=== PATIENT | male | born 1995 | race Caucasian/White ===

== ENCOUNTER 2017-12-05 17:17 | Emergency (ER) | payer OTHER, SELFPAY ==
[2017-12-05 17:17] VITALS: BP 139/66; PULSE 63; RESP 14; TEMP 36.6; O2SAT 98; BMI 27.2
--- NOTE | 2017-12-05 17:48 | ED.DCSUM_ITS ---
- ER Visit Summary Date of Service: 12/05/17 Chief Complaint: Nose injury History of Present Illness: The patient is a 22 M presenting with nose injury. Patient was playing basketball and he was head butted in the nose. He states he felt lightheaded but did not lose consciousness. No nausea or vomiting. He had bleeding from the left nares. This has since improved. No other injuries. Physical Examination: Vitals are stable. Patient is afebrile. Alert no acute distress. HEENT exam tenderness and swelling to the nasal bridge, no septal hematoma, no active bleeding. Dried blood left nares. Neck is nontender Lungs are clear and equal bilaterally. Heart is regular rate and rhythm. Extremities are unremarkable. Skin is warm and dry. No focal neurologic deficit. Remainder of exam is unremarkable. Emergency Department Course and Treatment: Nasal bone x-ray shows question nondepressed distal nasal bone fracture. Patient is advised of these findings. He lives in [place]. He is advised to follow-up with ENT when he returns home. Advised to take NSAIDs for pain. Advised to ice. Advised return to ED if worsening complaints. Disposition: Discharged home Impression: Nose injury This note was generated with [employer] dictation software. It may contain incorrect words, spelling, and punctuation that were not noted in review of the chart prior to signing ED Disposition - Plan for ED Patient: Chief Complaint: Other, Pain/Inj Referrals: Dewey Astorga MD [[facility]] -
--- NOTE | 2017-12-05 17:50 | RAD_ITS ---
STUDY: X-RAY - NASAL BONES REASON FOR EXAM: Male, 22 years old. Nasal trauma, pain TECHNIQUE: 3 view(s) of the nasal bones. COMPARISON: None. FINDINGS: There may be a nondepressed fracture at the distal aspect of the nasal bone. Normal anterior nasal spine. There is mild soft tissue swelling over the nose. The remaining visualized osseous structures are normal. Normal visualized paranasal sinuses. RAD/Nasal Bones min 3 Views IMPRESSION: Question nondepressed distal nasal bone fracture. Electronically Signed: Miller Tellez DO at 18:36 EDT Tel , Service support ,
--- NOTE | 2017-12-05 18:55 | ED.DEP ---
ED Disposition - Plan for ED Patient: Chief Complaint: Other, Pain/Inj Instructions: ED Fx Nasal Conf W X Ray Referrals: Dewey Astorga MD [[facility]] -
[2017-12-05 19:18] VITALS: BP 128/60; PULSE 64; RESP 16; O2SAT 98
== END 2017-12-05 19:20 | disposition home or self-care (01) ==
PROVIDERS: Emergency Provider Emergency Medicine
DX: S09.92XA Unspecified injury of nose, initial encounter (principal); W51.XXXA Accidental striking against or bumped into by another person, initial encounter; Y93.67 Activity, basketball; Y92.9 Unspecified place or not applicable; Y99.9 Unspecified external cause status
CPT/HCPCS: 70160; 99282